=== PATIENT | male | born 1930 | race Caucasian/White ===

== ENCOUNTER 2018-05-09 13:13 | Inpatient (IN) | payer MEDICARE, BC ==
[~2018-05-09] VITALS: Ht 175.3 cm; Wt 88.5 kg
--- NOTE | 2018-05-09 13:20 | NUR ---
patient presented to the ER c/o cough and congestion x 2 weeks. Connected to the monitor and pulse ox. Breathing evenly and unlabored. Kept comfortable, will continue to monitor accordingly.
[2018-05-09] MEDS ORDERED: ALBUTEROL FS 2.5 MG/0.5 ML VIAL.NEB NEB SCH (13:30)
[2018-05-09] MEDS ORDERED: LEVOFLOXACIN (500MG) 500 MG TABLET PO ONE ×2 (13:30→17:00)
--- NOTE | 2018-05-09 13:30 | NUR ---
SL ESTABLISHED,BLOOD DRAWN INCLUDING BLOOD CULTURES
[2018-05-09] MEDS ORDERED: methylPREDNISolone SOD SUCC 125 MG/2ML VIAL ONE (13:48)
[2018-05-09] MEDS ORDERED: CEFTRIAXONE 1GM BAG (ER ONLY) 50 ML IV ONE (13:48)
[2018-05-09 13:55] LABS: BASOPHILS % (AUTO) 0.5 % (0.0-2.0); EOSINOPHILS % (AUTO) 0.8 % (0.0-6.0); HEMATOCRIT 41 % (39-51); HEMOGLOBIN 13.5 g/dL (13.5-17.5); LYMPHOCYTES # (AUTO) 0.9 /CMM (0.8-4.8); LYMPHOCYTES % (AUTO) 15.9 % (20.0-44.0); MEAN CORPUSCULAR HGB CONC 33 g/dl (31.0-36.0); MEAN CORPUSCULAR VOLUME 98 fL (80-96); MONOCYTES # (AUTO) 0.5 /CMM (0.1-1.30); MONOCYTES % (AUTO) 9.4 % (2.0-12.0); NEUTROPHILS % (AUTO) 73.4 % (43.0-81.0); PLATELET COUNT (AUTO) 125 /CMM (150-450); RED BLOOD CELL COUNT(AUTO) 4.22 MIL/uL (4.5-6.0); WHITE BLOOD COUNT (AUTO) 5.4 K/uL (4.3-11.0)
[2018-05-09] MEDS ORDERED: CEFTRIAXONE 1GM BAG (ER ONLY) 1 GM/50 ML PIGGYBACK IV ONE (14:00)
[2018-05-09] MEDS ORDERED: Z GUARD REMEDY 2 OZ OINT TP PRN (14:00)
[2018-05-09] MEDS ORDERED: ONDANSETRON HCL/PF 4 MG/2 ML VIAL IVP PRN (14:00)
[2018-05-09] MEDS: methylPREDNISolone SOD SUCC 125 MG/2ML VIAL IV SCH ×2 (14:00→21:41)
[2018-05-09] MEDS ORDERED: HYDROCODONE/APAP 5/325MG 1 EACH TABLET PO PRN (14:00)
[2018-05-09] MEDS ORDERED: ZOLPIDEM TARTRATE 5 MG TABLET PO PRN (14:00)
[2018-05-09] MEDS ORDERED: ALBUTEROL FS 2.5 MG/3 ML VIAL.NEB NEB ONE (14:00)
[2018-05-09] MEDS ORDERED: MAGNESIUM HYDROXIDE 30 ML UDC PO PRN (14:00)
[2018-05-09] MEDS ORDERED: IPRATROPIUM NEB FS 0.5 MG/2.5 ML AMPUL.NEB NEB ONE (14:00)
[2018-05-09] MEDS ORDERED: methylPREDNISolone SOD SUCC 125 MG/2ML VIAL IV ONE (14:00)
[2018-05-09] MEDS ORDERED: ACETAMINOPHEN 325 MG TABLET PO PRN (14:00)
[2018-05-09] MEDS ORDERED: MAG HYDROX/AL HYDROX/SIMETH 30 ML UDC PO PRN (14:00)
[2018-05-09 14:02] LABS: CALCIUM, SERUM 8.5 mg/dL (8.5-10.1); CARBON DIOXIDE 34 mmol/L (21-32); CHLORIDE 102 mmol/L (98-107); CREATININE 0.8 mg/dL (0.6-1.3); GLUCOSE 131 mg/dL (74-106); POTASSIUM 4.4 mmol/L (3.5-5.1); SODIUM SERUM 138 mmol/L (136-145); UREA NITROGEN, BLOOD 18 mg/dL (7-18)
[2018-05-09 14:15] LABS: ALANINE AMINOTRANSFERASE 40 U/L (12-78); ALBUMIN 3.7 g/dL (3.4-5.0); ALKALINE PHOSPHATASE 101 U/L (46-116); ASPARTATE AMINOTRANSFERASE 26 U/L (15-37); B-TYPE NATRIURETIC PEPTIDE 1125 PG/ML (0-125); BILIRUBIN,DIRECT 0.2 mg/dL (0.0-0.2); BILIRUBIN,TOTAL 0.6 mg/dL (0.2-1.0); TOTAL PROTEIN, SERUM 6.5 g/dL (6.4-8.2)
[2018-05-09] MEDS ORDERED: BUDE10.2 IH (14:54)
[2018-05-09] MEDS ORDERED: GUAI600T53 PO (14:54)
[2018-05-09] MEDS ORDERED: TAMS-12 PO (14:54)
[2018-05-09] MEDS ORDERED: FLUT16SP16 NS (14:54)
[2018-05-09] MEDS ORDERED: DILT180C66 PO (14:54)
[2018-05-09] MEDS ORDERED: VIT1CAPS9 PO (14:54)
[2018-05-09] MEDS ORDERED: TEMA30CA5 PO (14:54)
[2018-05-09] MEDS ORDERED: MONT10TA22 PO (14:54)
[2018-05-09] MEDS ORDERED: ASPI-1169 PO (14:54)
[2018-05-09] MEDS ORDERED: METO-358 PO (14:54)
[2018-05-09] MEDS ORDERED: CLOP75TA15 PO (14:54)
[2018-05-09] MEDS ORDERED: SULF500T8 PO ×2 (14:54)
[2018-05-09] MEDS ORDERED: AZEL137S7 NS (14:54)
[2018-05-09] MEDS ORDERED: ALLO100T PO (14:54)
[2018-05-09] MEDS ORDERED: POTA8CAP10 PO (14:54)
[2018-05-09] MEDS ORDERED: ATOR20TA PO (14:54)
[2018-05-09] MEDS ORDERED: SACU1TAB7 PO (14:54)
[2018-05-09] MEDS ORDERED: ALBU2.5V38 IH (14:54)
--- NOTE | 2018-05-09 15:40 | NUR ---
wheeled patient via acls protocol in no apparent distress noted. Flor APPIAH at bedside to assume care.
[2018-05-09 15:45] VITALS: BP 146/78
--- NOTE | 2018-05-09 16:00 | NUR ---
Tele/RN - Admission Patient alert and oriented x 4, denies chest pain, c/o difficulty breathing, on oxygen at 2lpm via nasal cannula, tele shows AV paced HR low 100s, admitted for Acute Resp. Distress under the care of Dr. Esqueda. Saline lock on the RAC is patent, intact, with no signs of infiltration. Patient oriented to room and use of call light, all belongings accounted and sent home with except for his reading glasses and sunglasses. Skin assessment done, no skin breakdown seen. Patient ambulatory with assist. Fall and aspiration precautions initiated. Plan of care discussed with patient and . Admission orders noted and carried out. Will continue to monitor closely.
[2018-05-09] MEDS: GUAIFENESIN LA 600 MG TABLET.SA PO SCH (16:55)
[2018-05-09] MEDS ORDERED: TEMAZEPAM 15 MG CAPSULE PO PRN (17:00)
[2018-05-09] MEDS: ENOXAPARIN SODIUM 40 MG/0.4 ML DISP.SYRIN SQ SCH (17:09)
[2018-05-09] MEDS: FLUTICASONE PROPIONATE 16 GM BOTTLE NS SCH (17:10)
[2018-05-09] MEDS: CLOPIDOGREL BISULFATE 75 MG TABLET PO SCH (17:15)
[2018-05-09] MEDS: SULFASALAZINE 500 MG TABLET PO SCH (17:15)
[2018-05-09] MEDS: TAMSULOSIN 0.4 MG CAP.SR.24H PO SCH (17:15)
[2018-05-09] MEDS: MONTELUKAST SODIUM (10MG) 10 MG TABLET PO SCH (17:16)
[2018-05-09] MEDS ORDERED: DILTIAZEM HCL CD 180 MG PO SCH (18:00)
--- NOTE | 2018-05-09 18:37 | NUR ---
MS/RN - End of shift summary No significant change in condition seen, tolerating diet well, fall and aspiration precautions maintained. Will endorse to night nurse for continuity of care.
[2018-05-09 20:00] VITALS: BP 123/82
--- NOTE | 2018-05-09 20:00 | NUR ---
TELE/RN OPENING NOTES RECEIVED PATIENT IN BED, ON OXYGEN AT 3L, ALERT, ORIENTED X2, ABLE TO VERBALIZE NEEDS, SKIN WARM TO TOUCH, REQUIRE 3 PILLOWS KEEP HOB ELEVATED FOR COMFORT. RECEIVED REPORT FROM AM RN FOR LIA. BED LOCK, CALL LIGHTS WITHIN REACH, WATCHING TV. DENIES PAIN.
--- NOTE | 2018-05-09 20:00 | NUR ---
MS/RN OPENING NOTES RECEIVED PATIENT IN BED, HOB ELEVATED, INFORMED TO KEEP NASAL CANULA ON PATIENT REMOVES DURING THE ROUNDS. RESPIRATIONS EVEN AND UNLABORED. DENIES PAIN. SKIN WARM TO TOUCH. BED LOCKED. CALL LIGHTS WITHIN REACH. RECEIVED ENDORSEMENT FROM AM RN FOR LIA. WILL MONITOR.
[2018-05-09] MEDS: LEVOFLOXACIN (500MG) 500 MG TABLET PO SCH (22:35)
[2018-05-10 00:31] VITALS: BP 137/86
[2018-05-10] MEDS: ACETYLCYSTEINE 10% SOLN 400 MG/4 ML VIAL NEB SCH ×2 (00:38→15:11)
[2018-05-10 04:00] VITALS: BP 123/86
[2018-05-10] MEDS: methylPREDNISolone SOD SUCC 125 MG/2ML VIAL IV SCH ×3 (04:53→20:51)
[2018-05-10] MEDS: GUAIFENESIN LA 600 MG TABLET.SA PO SCH ×2 (06:14→16:02)
[2018-05-10] MEDS: FLUTICASONE PROPIONATE 16 GM BOTTLE NS SCH ×2 (06:14→17:10)
[2018-05-10 06:30] LABS: BASOPHILS % (AUTO) 0.2 % (0.0-2.0); HEMATOCRIT 40 % (39-51); HEMOGLOBIN 13.1 g/dL (13.5-17.5); LYMPHOCYTES # (AUTO) 0.5 /CMM (0.8-4.8); MEAN CORPUSCULAR HGB CONC 33 g/dl (31.0-36.0); MEAN CORPUSCULAR VOLUME 97 fL (80-96); MONOCYTES # (AUTO) 0.1 /CMM (0.1-1.30); MONOCYTES % (AUTO) 1.2 % (2.0-12.0); NEUTROPHILS # (AUTO) 4.4 /CMM (1.8-8.9); NEUTROPHILS % (AUTO) 88.6 % (43.0-81.0); PLATELET COUNT (AUTO) 127 /CMM (150-450); RED BLOOD CELL COUNT(AUTO) 4.14 MIL/uL (4.5-6.0)
--- NOTE | 2018-05-10 06:30 | NUR ---
TELE/RN NOTES PATIENT ALERT, ORIENTED X3 AWAKE, ABLE TO VERBALIZE NEEDS, SLEPT FEW HOURS REPORTED. RESPIRATIONS EVEN AND UNLABORED. BED LOCKED, CALL LIGHTS WITHIN REACH. WILL MONITOR.
[2018-05-10 06:49] LABS: CHOLESTEROL 139 mg/dL (<200); HDL CHOLESTEROL 70 mg/dL (40-60); LDL 65 mg/dL (0-99); TRIGLYCERIDES 49 mg/dL (30-150)
[2018-05-10 06:57] LABS: CALCIUM, SERUM 8.5 mg/dL (8.5-10.1); CARBON DIOXIDE 32 mmol/L (21-32); CHLORIDE 98 mmol/L (98-107); CREATININE 0.7 mg/dL (0.6-1.3); GLUCOSE 201 mg/dL (74-106); MAGNESIUM 2.2 mg/dL (1.8-2.4); PHOSPHORUS 3.7 mg/dL (2.5-4.9); POTASSIUM 4.5 mmol/L (3.5-5.1); SODIUM SERUM 136 mmol/L (136-145); UREA NITROGEN, BLOOD 15 mg/dL (7-18)
[2018-05-10] MEDS: IPRATROPIUM NEB FS 0.5 MG/2.5 ML AMPUL.NEB NEB SCH ×4 (07:35→20:16)
--- NOTE | 2018-05-10 07:36 | NUR ---
M/S RN NOTES PATIENT ALERT AND ORIENTED X 4. HOB UP. PATIENT ON OXYGEN AT 2L. IV ON RIGHT AC #20G AND LEFT HAND #20G, BOTH INTACT AND PATENT. NO RESPIRATORY DISTRESS NOTED. NO COMPLAINT OF PAIN. SKIN WARM TO TOUCH. BED LOCKED AND CALL LIGHT WITHIN REACH.
[2018-05-10 08:00] VITALS: BP 168/101
[2018-05-10] MEDS: SULFASALAZINE 500 MG TABLET PO SCH ×2 (08:17→17:10)
[2018-05-10] MEDS: ALLOPURINOL 100 MG TABLET PO SCH (08:17)
[2018-05-10] MEDS: ASPIRIN 81 MG TAB.CHEW PO SCH (08:17)
[2018-05-10] MEDS ORDERED: METOPROLOL SUCCINATE 50 MG TAB.SR.24H PO SCH (09:00)
[2018-05-10] MEDS: AZELASTINE NASAL SPRAY 30 ML BOTTLE NS SCH (09:00)
--- NOTE | 2018-05-10 09:30 | NUR ---
Tele/RN - Cardio consult Seen and examined by Dr. Bello with new orders, pacemaker interrogation results relayed.
--- NOTE | 2018-05-10 09:50 | NUR ---
PHOTOGRAPHER APPRENTICE LITHOGRAPHIC PULMONARY CONSULT SEEN BY DR. ALEXANDER WITH ORDERS
[2018-05-10] MEDS ORDERED: FUROSEMIDE 20 MG/2 ML VIAL IV ONE (10:00)
[2018-05-10] MEDS: AMIODARONE HCL 200 MG TABLET PO SCH ×2 (14:02→16:02)
--- NOTE | 2018-05-10 15:13 | NUR ---
RT RT UNAWARE OF BREATHING TX'S. PT GIVEN TX'S AT 1513. NO ADVERSE REACTIONS NOTED.
[2018-05-10 16:00] VITALS: BP 151/101
[2018-05-10] MEDS: CLOPIDOGREL BISULFATE 75 MG TABLET PO SCH (17:10)
[2018-05-10] MEDS: MONTELUKAST SODIUM (10MG) 10 MG TABLET PO SCH (17:10)
[2018-05-10] MEDS: TAMSULOSIN 0.4 MG CAP.SR.24H PO SCH (17:10)
[2018-05-10] MEDS: ATORVASTATIN 10 MG TABLET PO SCH (17:10)
[2018-05-10] MEDS: DILTIAZEM HCL CD 240 MG PO SCH (17:11)
--- NOTE | 2018-05-10 17:53 | NUR ---
M/S RN NOTES PATIENT WALKED WITH PT TODAY, TOLERATED WELL. NO RESPIRATORY DISTRESS NOTED. PATIENT ON O2 AT 2L VIA NASAL CANNULA. PATIENT DENIES ANY PAIN. PATIENT WITH IV SALINE LOCK ON RAC #20G PATENT AND INTACT. PATIENT'S MEDS GIVEN PRESCRIBED. PATIENT WITH NO COMPLAINTS. BED LOW AND LOCKED, CALL LIGHT WITHIN REACH.
--- NOTE | 2018-05-10 19:32 | NUR ---
MS CARLOS INITIAL NOTES RECEIVED REPORT FROM AM NURSE SUSI AND SEEN PATIENT STANDING IN FRONT OF HIS ROOM THEN I ASKED HIM IF HE NEEDS SOME HELPED AFTER I INTRODUCE MYSELF HIS NURSE AL. HE ONLY ASKED TO TURN OFF HIS LIGHT AND HE'S SLEEPING MEDICATION FOR TONIGHT. NO SIGNS OF ANY ACUTE DISTRESS OR ANY DISCOMFORT. HE'S BACK TO TO BED AND WATCH TV AT THIS TIME. RE-ORIENTED HOW TO USED THE CALL LIGHT AND ENCOURAGE HIM TO USE THE CALL LIGHT IF HE NEEDS SOME HELP OR NEEDS THE NURSE. PLACE CALL LIGHT AT REACH. WILL CONTINUE MONITORING.
[2018-05-10 20:00] VITALS: BP 133/77
[2018-05-10] MEDS: ENOXAPARIN SODIUM 40 MG/0.4 ML DISP.SYRIN SQ SCH (20:35)
--- NOTE | 2018-05-10 20:35 | NUR ---
MS CARLOS NOTES RESTORIL PO GIVEN PER PT REQUESTED WELL HIS ROUTINE MEDS. EDUCATE PT FOR POSSIBLE SIDE EFFECT AND PT UNDERSTOOD WELL AND HE STATE HE'S BEEN TAKING HIS MEDICATION FOR A LONG TIME. BED ALARM SET FOR SAFETY.
[2018-05-10] MEDS: LEVOFLOXACIN (500MG) 500 MG TABLET PO SCH (22:45)
[2018-05-11] MEDS: IPRATROPIUM NEB FS 0.5 MG/2.5 ML AMPUL.NEB NEB SCH ×5 (00:38→19:44)
[2018-05-11] MEDS: ACETYLCYSTEINE 10% SOLN 400 MG/4 ML VIAL NEB SCH ×4 (00:38→15:07)
--- NOTE | 2018-05-11 00:48 | NUR ---
MS CARLOS NOTES PT SLEEPING COMFORTABLY IN BED WITHOUT ANY ACUTE DISTRESS NOTED. KEPT HIM WARM AND COMFORTABLE AT ALL TIMES. WILL CONTINUE MONITORING. PLACE CALL LIGHT AT REACH.
--- NOTE | 2018-05-11 04:00 | NUR ---
MS CARLOS NOTES PT WOKE UP AND SEEMS FORGET WHERE HE AT AND LOOKING FOR HIS . , RE-ORIENTED HIM THAT HE'S IN THE HOSPITAL AND TOLD HIM THAT HIS STILL AT HOME. THEN PT STATED HE'S HUNGRY AND ASKING FOR TUNA OR EGG SANDWICH. EGG SANDWICH SERVED PER PT REQUESTED AND SOME JUICE. THEN PT SAID "THANK YOU "KEPT HIM WARM AND COMFORTABLE AT ALL TIMES. PLACE CALL LIGHT AT REACH. BED ALARM SET FOR SAFETY.
[2018-05-11] MEDS: methylPREDNISolone SOD SUCC 125 MG/2ML VIAL IV SCH (05:07)
[2018-05-11 06:56] LABS: BASOPHILS % (AUTO) 0.1 % (0.0-2.0); HEMATOCRIT 40 % (39-51); LYMPHOCYTES # (AUTO) 0.7 /CMM (0.8-4.8); LYMPHOCYTES % (AUTO) 5.9 % (20.0-44.0); MEAN CORPUSCULAR HGB CONC 33 g/dl (31.0-36.0); MEAN CORPUSCULAR VOLUME 97 fL (80-96); MONOCYTES # (AUTO) 0.6 /CMM (0.1-1.30); MONOCYTES % (AUTO) 5.5 % (2.0-12.0); NEUTROPHILS % (AUTO) 88.5 % (43.0-81.0); PLATELET COUNT (AUTO) 154 /CMM (150-450); WHITE BLOOD COUNT (AUTO) 11.3 K/uL (4.3-11.0)
--- NOTE | 2018-05-11 07:00 | NUR ---
MS COMMUNITY ASSOCIATE CLOSING NOTES PT AWAKE AND WATCHING TV BACK TO HIS BED AFTER WE CALL HIS . STABLE TATYANA THE NIGHT EXCEPT SOME CONFUSION AT TIMES. NO SIGNS OF ANY DISTRESS TATYANA THE NIGHT . SLEPT WELL AFTER RESTORIL GIVEN ORDERED. HEPLOCK PATENT AND INTACT. KEPT HIM WARM AND COMFORTABLE AT ALL TIMES. BED ALARM SET FOR PT SAFETY/ ENDORSE TO AM NURSE FOR CONTINUITY OF CARE. PLACE CALL LIGHT AT REACH.
--- NOTE | 2018-05-11 07:10 | NUR ---
bEDSIDE REPORT RECIEVE FROM PN RN. PATIENT SITTING IN BED. BED ALARM ACTIVE. PATIENT HAS HISTORY OF CONFUSION. PATIENT AWAKE AND ORIENTED TO PERSON REOORIENTED TO PLACE AND TIME. PATIENT STATES" oH OK , CAN I WATCH SOME TV. PATIENT LEFT WITH BED UP SRX3 CALL LIGHT IN REACH ON 3LNC SATURATING AT 98%
[2018-05-11 07:25] LABS: CALCIUM, SERUM 8.8 mg/dL (8.5-10.1); CARBON DIOXIDE 33 mmol/L (21-32); CHLORIDE 98 mmol/L (98-107); GLUCOSE 243 mg/dL (74-106); MAGNESIUM 2.2 mg/dL (1.8-2.4); PHOSPHORUS 3.9 mg/dL (2.5-4.9); POTASSIUM 3.9 mmol/L (3.5-5.1); SODIUM SERUM 139 mmol/L (136-145); UREA NITROGEN, BLOOD 22 mg/dL (7-18)
[2018-05-11 08:00] VITALS: BP 153/93
[2018-05-11] MEDS: SULFASALAZINE 500 MG TABLET PO SCH ×2 (08:56→17:07)
[2018-05-11] MEDS: FLUTICASONE PROPIONATE 16 GM BOTTLE NS SCH ×2 (08:56→16:39)
[2018-05-11] MEDS: GUAIFENESIN LA 600 MG TABLET.SA PO SCH ×2 (08:56→16:44)
[2018-05-11] MEDS: ASPIRIN 81 MG TAB.CHEW PO SCH (08:56)
[2018-05-11] MEDS: ALLOPURINOL 100 MG TABLET PO SCH (08:57)
[2018-05-11] MEDS: AMIODARONE HCL 200 MG TABLET PO SCH ×4 (08:58→16:50)
[2018-05-11 09:10] LABS: ABG BASE EXCESS 7.4 mmol/L; ABG OXYGEN SATURATION 86.7 % (92.0-98.5); ABG PCO2 54.7 mmHg (35.0-45.0); ABG PH 7.407 (7.350-7.450); AaDO2 28.2 mmHg; COHb 1.4 % (0.5-1.5); MetHb 0.5 % (0.0-1.5); O2Hb 85.1 % (94.0-97.0); SITE, ABG Right Radial; VENT MODE, BG room air
[2018-05-11] MEDS: AZELASTINE NASAL SPRAY 30 ML BOTTLE NS SCH (12:17)
[2018-05-11] MEDS ORDERED: LEVOFLOXACIN (500MG) 500 MG TABLET PO SCH (12:30)
[2018-05-11] MEDS: Budesonide/Formoterol Fumarate (Symbicort 160-4.5 Mcg) INH SCH ×2 (13:57→16:44)
[2018-05-11] MEDS ORDERED: CEFTRIAXONE 1 G in IV D5W 50 ML IV SCH (14:00)
[2018-05-11] MEDS: VALSARTAN PO SCH (16:45)
[2018-05-11] MEDS: SACUBITRIL PO SCH (16:45)
[2018-05-11] MEDS: MONTELUKAST SODIUM (10MG) 10 MG TABLET PO SCH (16:49)
[2018-05-11] MEDS: CLOPIDOGREL BISULFATE 75 MG TABLET PO SCH (16:49)
[2018-05-11] MEDS: TAMSULOSIN 0.4 MG CAP.SR.24H PO SCH (16:49)
[2018-05-11] MEDS: ATORVASTATIN 10 MG TABLET PO SCH (16:49)
[2018-05-11] MEDS: DILTIAZEM HCL CD 240 MG PO SCH (16:51)
[2018-05-11] MEDS ORDERED: TEMAZEPAM 15 MG CAPSULE PO SCH ×2 (18:00→22:00)
--- NOTE | 2018-05-11 18:41 | NUR ---
PATIENT SITTING IN BED. BED ALARM ACTIVE. PATIENT HAS HISTORY OF CONFUSION. PATIENT AWAKE AND ORIENTED TO PERSON REOORIENTED TO PLACE AND TIME. PATIENT LEFT WITH BED UP SRX3 CALL LIGHT IN REACH ON 3LNC SATURATING AT 98%. IV TO LEFT AC IS HEPLOCKED RAC #20
--- NOTE | 2018-05-11 19:36 | NUR ---
MS RN RECEIVE PT IN BED. A/O X 3. RESPIRATIONS EVEN AND UNLABORED, NO SOB NOTED, NO DISTRESS, SAFETY MEASURES IN PLACE. WILL CONTINUE TO MONITOR.
[2018-05-11 20:00] VITALS: BP 142/89
[2018-05-11 21:24] VITALS: BP 142/89
[2018-05-11] MEDS: ENOXAPARIN SODIUM 40 MG/0.4 ML DISP.SYRIN SQ SCH (21:25)
[2018-05-12] MEDS: ACETYLCYSTEINE 10% SOLN 400 MG/4 ML VIAL NEB SCH ×2 (00:26→07:13)
[2018-05-12] MEDS: IPRATROPIUM NEB FS 0.5 MG/2.5 ML AMPUL.NEB NEB SCH ×2 (00:38→07:13)
--- NOTE | 2018-05-12 06:07 | NUR ---
MS RN CLOSING NOTE PT IN BED ASLEEP EASILY AWAKEN, ON 2LPM VIA NC 02 SAT AT 95%. RESPIRATIONS EVEN AND UNLABORED. NOT IN DISTRESS, STABLE. NEEDS ATTENDED AND ANTICIPATED, KEPT DRY, CLEAN AND COMFORT. NO COMPLAIN OF PAIN. OFFLOAD HEELS AND ELBOWS AT ALL TIMES. REPOSITIONED EVERY 2 HOURS, AM CARE RENDERED. SAFETY MEASURES IN PLACE, BED IN LOW LOCKED POSITION, CALL LIGHT WITHIN EASY REACH. ENDORSE TO NEXT SHIFT CONTINUITY OF CARE.
[2018-05-12] MEDS: VALSARTAN PO SCH (07:00)
[2018-05-12] MEDS: SACUBITRIL PO SCH (07:00)
--- NOTE | 2018-05-12 07:30 | NUR ---
RECEIVED PT. IN AM FORGETFUL BUT ORIENTED X3.O2 ON CONTINUALLY.SIDE RAILS UP CALL SINGER WITHIN REACH.NO ACUTE DISTRESS.
[2018-05-12 07:50] LABS: BASOPHILS % (AUTO) 0.1 % (0.0-2.0); HEMATOCRIT 40 % (39-51); LYMPHOCYTES % (AUTO) 12.8 % (20.0-44.0); MEAN CORPUSCULAR HGB CONC 33 g/dl (31.0-36.0); MEAN CORPUSCULAR VOLUME 97 fL (80-96); MONOCYTES # (AUTO) 0.8 /CMM (0.1-1.30); MONOCYTES % (AUTO) 9.7 % (2.0-12.0); NEUTROPHILS # (AUTO) 6.3 /CMM (1.8-8.9); NEUTROPHILS % (AUTO) 77.4 % (43.0-81.0); PLATELET COUNT (AUTO) 125 /CMM (150-450); WHITE BLOOD COUNT (AUTO) 8.1 K/uL (4.3-11.0)
[2018-05-12 08:00] VITALS: BP 138/75
[2018-05-12 08:02] LABS: CALCIUM, SERUM 8.4 mg/dL (8.5-10.1); CARBON DIOXIDE 35 mmol/L (21-32); CHLORIDE 98 mmol/L (98-107); CREATININE 0.8 mg/dL (0.6-1.3); GLUCOSE 124 mg/dL (74-106); MAGNESIUM 2.4 mg/dL (1.8-2.4); PHOSPHORUS 4.2 mg/dL (2.5-4.9); POTASSIUM 3.7 mmol/L (3.5-5.1); SODIUM SERUM 139 mmol/L (136-145); UREA NITROGEN, BLOOD 22 mg/dL (7-18)
[2018-05-12] MEDS ORDERED: methylPREDNISolone SOD SUCC 40 MG/ML VIAL IV SCH (09:00)
[2018-05-12] MEDS: AZELASTINE NASAL SPRAY 30 ML BOTTLE NS SCH (09:13)
[2018-05-12] MEDS: Budesonide/Formoterol Fumarate (Symbicort 160-4.5 Mcg) INH SCH (09:13)
[2018-05-12] MEDS: FLUTICASONE PROPIONATE 16 GM BOTTLE NS SCH (09:14)
[2018-05-12 09:15] VITALS: BP 138/75
[2018-05-12] MEDS: AMIODARONE HCL 200 MG TABLET PO SCH (09:15)
[2018-05-12] MEDS: ASPIRIN 81 MG TAB.CHEW PO SCH (09:15)
[2018-05-12] MEDS: SULFASALAZINE 500 MG TABLET PO SCH (09:16)
[2018-05-12] MEDS: ALLOPURINOL 100 MG TABLET PO SCH (09:16)
[2018-05-12] MEDS: GUAIFENESIN LA 600 MG TABLET.SA PO SCH (09:20)
[2018-05-12] MEDS ORDERED: AMIO200T7 PO (09:33)
[2018-05-12] MEDS ORDERED: DILT240C88 PO (09:33)
--- NOTE | 2018-05-12 10:00 | NUR ---
DR. HOLLIS IN DC ORDER WRITTEN.HEP LOCK OUT.
--- NOTE | 2018-05-12 12:45 | NUR ---
DC INSTRUCTIONS GIVEN.CASE MGMT SPOKE WITH PT. O2 IN RM. WELL WALKER FOR PT.BELONGING SHEET SIGNED,ALL MEDS REVIEWED,FAMILY PRESENT.MED BROUGHT UP FROM PHARMACY.HEP LOCK OUT.TAKEN TO LOBBY VIA W/C WITH SUPPLIES,ACCOMPANIED BY FAMILY AND HAZARDOUS MATERIALS HANDLER.
--- NOTE | 2018-05-12 13:00 | NUR ---
CASE MGMT. CALLED REGARDING XOPENEX ORDER FROM 05/11.AVNI STATED THAT PT. HAS NEBULIZER AT HOME.DR. HOLLIS CALLED WELL RE; NEBULIZER.STATES OK WITH HOME NEBULIZER PT. TO SEE DR. ALEXANDER ON .
--- NOTE | 2018-05-12 14:30 | NUR ---
JUST FOUND KOKI IN PT'S RM.CALLED FAMILY AND WILL BE IN TOMORROW TO CHILD CARE CANE.
== END 2018-05-12 12:30 | disposition home health service (06) | DRG 189 ==
LOC: ER 13:15 → TELE 14:53 → MED 05-10 11:01
PROVIDERS: ADMIT Internal Medicine; ATTEND Internal Medicine
DX: J96.01 Acute respiratory failure with hypoxia (principal); J44.1 Chronic obstructive pulmonary disease with (acute) exacerbation; J44.0 Chronic obstructive pulmonary disease with (acute) lower respiratory infection; I50.32 Chronic diastolic (congestive) heart failure; J20.8 Acute bronchitis due to other specified organisms; K21.9 Gastro-esophageal reflux disease without esophagitis; E78.5 Hyperlipidemia, unspecified; N40.0 Benign prostatic hyperplasia without lower urinary tract symptoms; F03.90 Unspecified dementia, unspecified severity, without behavioral disturbance, psychotic disturbance, mood disturbance, and anxiety; I48.2 Chronic atrial fibrillation; Z95.0 Presence of cardiac pacemaker; G47.33 Obstructive sleep apnea (adult) (pediatric); J32.9 Chronic sinusitis, unspecified; Z87.891 Personal history of nicotine dependence; I11.0 Hypertensive heart disease with heart failure; I50.9 Heart failure, unspecified
CPT/HCPCS: 36415; 36600; 70220-TC; 71045-TC; 80048-TC; 80061-TC; 80076-TC; 82803-TC; 83735-TC; 83880; 84100-TC; 84484-TC; 85025-TC; 87040-TC; 87081-TC; 93307-TC; 94799-TC; G0378; J0696; J1650; J1940; J2405; J2920; J2930; J7050; J7060